=== PATIENT | female | born 1945 | race Caucasian/White ===

== ENCOUNTER → 2016-07-15 | Outpatient (CLI) | payer MEDICARE, OTHER ==
[~2016-07-15] MED LIST: ASCO500T75 PO; ASPI-999 PO; CALC-794 PO; CALC500T7 PO; CARB1DRO15 OP; FLAX1CAP6 PO; FLUT9.9S NS; GARL1TAB PO; IBUP200C75 PO; LACT1CAP57 PO; LEVO50TA6 PO; LOPE-134 PO; LORA10TA7 PO; LOSA1TAB69 PO; MECL-106 PO; MELA1TAB24 SL; MENT56CR TP; MULT-1042 PO; OMEP20TA7 PO; SIME125T PO; SODI126M NS; VITA400C58 PO
[2016-07-15 13:26] LABS: BASOPHILS % (AUTO) 0 % (0-10); EOSINOPHILS # (AUTO) 0.1 10^3/uL (0.0-0.3); EOSINOPHILS % (AUTO) 1 % (0-10); LYMPHOCYTES # (AUTO) 2.8 X 10^3 (1.0-4.0); LYMPHOCYTES % (AUTO) 37 % (12-44); MEAN CORPUSCULAR HEMOGLOBIN 30 PG (25-34); MEAN CORPUSCULAR HGB CONC 34 G/DL (32-36); MEAN CORPUSCULAR VOLUME 88 FL (80-99); MEAN PLATELET VOLUME 9.9 FL (7.4-10.4); MONOCYTES # (AUTO) 0.7 X 10^3 (0.0-1.0); MONOCYTES % (AUTO) 9 % (0-12); NEUTROPHILS # (AUTO) 4.1 X 10^3 (1.8-7.8); NEUTROPHILS % (AUTO) 53 % (42-75); PLATELET COUNT 343 10^3/uL (130-400); RED BLOOD COUNT 4.57 10^6/uL (4.35-5.85); WHITE BLOOD COUNT 7.7 10^3/uL (4.3-11.0)
[2016-07-15 13:58] LABS: ALANINE AMINOTRANSFERASE 19 U/L (0-55); ALBUMIN 4.2 G/DL (3.2-4.5); ANION GAP 8 MMOL/L (5-14); ASPARTATE AMINO TRANSFERASE 22 U/L (5-34); BILIRUBIN,TOTAL 0.4 MG/DL (0.1-1.0); BLOOD UREA NITROGEN 8 MG/DL (7-18); BUN/CREATININE RATIO 11; CALCIUM 9.2 MG/DL (8.5-10.1); CARBON DIOXIDE 28 MMOL/L (21-32); CHLORIDE 97 MMOL/L (98-107); CREATININE SERUM 0.72 MG/DL (0.60-1.30); GFR ESTIMATED > 60; GLUCOSE 99 MG/DL (70-105); POTASSIUM 4.4 MMOL/L (3.6-5.0); SODIUM 133 MMOL/L (135-145); TOTAL PROTEIN 7.5 G/DL (6.4-8.2)
== END ==
LOC: ONC 13:04
PROVIDERS: ATTEND Internal Medicine Hematology & Oncology
DX: C50.911 Malignant neoplasm of unspecified site of right female breast (principal); I10 Essential (primary) hypertension; E78.00 Pure hypercholesterolemia, unspecified; Z79.899 Other long term (current) drug therapy
CPT/HCPCS: 36415; 80053; 85025; 99213

== ENCOUNTER 2016-08-22 05:57 | Outpatient (CLI) | payer MEDICARE, OTHER ==
[~2016-08-22] VITALS: Ht 156.2 cm; Wt 83.9 kg
--- OUTSIDE RECORDS SUMMARY | 2016-08-22 06:00 | XMS REPORT | Continuity of Care Document ---
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 04/27/2014 NATHANIEL RODRIGUEZ N Ot 401.9 HYPERTENSION NOS 04/27/2014 NATHANIEL RODRIGUEZ Ot 457.1 OTHER LYMPHEDEMA 04/27/2014 NATHANIEL RODRIGUEZ Ot V15.3 HX OF IRRADIATION 04/27/2014 NATHANIEL RODRIGUEZ Ot V45.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 04/27/2014 NATHANIEL RODRIGUEZ Ot V58.66 LONG-TERM (CURRENT) USE OF ASPIRIN 04/27/2014 NATHANIEL RODRIGUEZ Ot V58.69 OTH MED,LT,CURRENT USE 04/27/2014 NATHANIEL RODRIGUEZ Ot V76.11 SCRN MAMMO-HIGH RISK PT, MALIGNANT NEOPL 04/27/2014 NATHANIEL RODRIGUEZ Ot V87.41 PERSONAL HISTORY OF ANTINEOPLASTIC CHEMO 09/01/2014 KLAUS NEUMANN ROPE TOW OPERATOR Ot 174.9 09/01/2014 KLAUS NEUMANN ROPE TOW OPERATOR Ot 196.3 09/01/2014 KLAUS NEUMANN ROPE TOW OPERATOR Ot 401.9 09/01/2014 KLAUS NEUMANN ROPE TOW OPERATOR Ot V15.3 09/01/2014 KALUS NEUMANN ROPE TOW OPERATOR Ot V45.71 09/01/2014 KLAUS NUEMANN ROPE TOW OPERATOR Ot V58.66 09/01/2014 KLAUS NEUMANN ROPE TOW OPERATOR Ot V58.69 09/01/2014 KLAUS NEUMANN ROPE TOW OPERATOR Ot V87.41 02/28/2015 KLAUS NEUMANN ROPE TOW OPERATOR Ot 174.9 02/28/2015 KLAUS NEUMANN ROPE TOW OPERATOR Ot V76.11 07/21/2015 JENNIFER, BOBAN N Ot 174.9 07/21/2015 JENNIFER, BOBAN N Ot 196.3 07/21/2015 JENNIFER, BOBAN N Ot 401.9 07/21/2015 JENNIFER, BOBAN N Ot 457.1 07/21/2015 JENNIFER, BOBAN N Ot V15.3 07/21/2015 JENNIFER, BOBAN N Ot V45.71 07/21/2015 JENNIFER, BOBAN N Ot V58.66 07/21/2015 JENNIFER, BOBAN N Ot V58.69 07/21/2015 JENNIFER, BOBAN N Ot V76.11 07/21/2015 JENNIFER, BOBAN N Ot V87.41 07/21/2015 JENNIFER, BOBAN N Ot 174.9 07/21/2015 JENNIFER, BOBAN N Ot 196.3 07/21/2015 JENNIFER, BOBAN N Ot 401.9 07/21/2015 JENNIFER, BOBAN N Ot 457.1 07/21/2015 JENNIFER, BOBAN N Ot V15.3 07/21/2015 JENNIFER, BOBAN N Ot V45.71 07/21/2015 JENNIFER, BOBAN N Ot V58.66 07/21/2015 JENNIFER, BOBAN N Ot V58.69 07/21/2015 JENNIFER, BOBAN N Ot V76.11 07/21/2015 JENNIFER, BOBAN N Ot V87.41 08/24/2015 JENNIFER, BOBAN N Ot C50.911 08/24/2015 JENNIFER, BOBAN N Ot E78.0 08/24/2015 JENNIFER, BOBAN N Ot I10 08/24/2015 JENNIFER, BOBAN N Ot Z79.899 08/24/2015 DENAE FREEMAN, KHRIS Peter Ot E03.9 08/24/2015 KHRIS PHILIPPE MD Ot I10 01/08/2016 Ot 174.9 MALIGN NEOPL BREAST NOS 01/08/2016 Ot 733.90 BONE CARTILAGE DIS NOS 05/22/2016 Ot 174.9 MALIGN NEOPL BREAST NOS 05/22/2016 Ot 733.90 BONE CARTILAGE DIS NOS 05/22/2016 Ot 174.9 MALIGN NEOPL BREAST NOS 05/22/2016 Ot 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 05/22/2016 Ot 702.19 OTHER SEBORRHEIC KERATOSIS 05/22/2016 Ot 733.90 BONE CARTILAGE DIS NOS 05/22/2016 Ot V15.3 HX OF IRRADIATION 05/22/2016 Ot V45.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 05/22/2016 Ot V58.69 OTH MED,LT,CURRENT USE 05/22/2016 Ot V87.41 PERSONAL HISTORY OF ANTINEOPLASTIC CHEMO 05/22/2016 Ot 174.9 MALIGN NEOPL BREAST NOS 05/22/2016 Ot 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 05/22/2016 Ot 702.19 OTHER SEBORRHEIC KERATOSIS 05/22/2016 Ot 733.90 BONE CARTILAGE DIS NOS 05/22/2016 Ot V15.3 HX OF IRRADIATION 05/22/2016 Ot V45.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 05/22/2016 Ot V58.69 OTH MED,LT,CURRENT USE 05/22/2016 Ot V87.41 PERSONAL HISTORY OF ANTINEOPLASTIC CHEMO 05/22/2016 Ot 174.9 MALIGN NEOPL BREAST NOS 05/22/2016 Ot V76.11 SCRN MAMMO-HIGH RISK PT, MALIGNANT NEOPL 05/22/2016 Ot 174.9 MALIGN NEOPL BREAST NOS 05/22/2016 Ot 174.9 MALIGN NEOPL BREAST NOS 05/22/2016 Ot 457.1 OTHER LYMPHEDEMA 05/22/2016 Ot V15.3 HX OF IRRADIATION 05/22/2016 Ot V45.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 05/22/2016 Ot V58.66 LONG-TERM (CURRENT) USE OF ASPIRIN 05/22/2016 Ot V58.69 OTH MED,LT,CURRENT USE 05/22/2016 Ot V87.41 PERSONAL HISTORY OF ANTINEOPLASTIC CHEMO 05/22/2016 Ot 174.9 MALIGN NEOPL BREAST NOS 05/22/2016 Ot 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 05/22/2016 Ot 401.9 HYPERTENSION NOS 05/22/2016 Ot 457.1 OTHER LYMPHEDEMA 05/22/2016 Ot V15.3 HX OF IRRADIATION 05/22/2016 Ot V45.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 05/22/2016 Ot V58.66 LONG-TERM (CURRENT) USE OF ASPIRIN 05/22/2016 Ot V58.69 OTH MED,LT,CURRENT USE 05/22/2016 Ot V87.41 PERSONAL HISTORY OF ANTINEOPLASTIC CHEMO 05/22/2016 KLAUS NEUMANN ROPE TOW OPERATOR Ot 174.9 MALIGN NEOPL BREAST NOS 05/22/2016 KLAUS NEUMANN ROPE TOW OPERATOR Ot 733.90 BONE CARTILAGE DIS NOS 05/22/2016 KLAUS NEUMANN ROPE TOW OPERATOR Ot V49.81 ASYMPT POSTMENOPAUSAL STATUS (AGE- RELATE 05/22/2016 KLAUS NEUMANN ROPE TOW OPERATOR Ot V76.11 SCRN MAMMO-HIGH RISK PT, MALIGNANT NEOPL 05/22/2016 NATHANIEL RODRIGUEZ Ot 174.9 MALIGN NEOPL BREAST NOS 05/22/2016 NATHANIEL RODRIGUEZ Ot 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 05/22/2016 NATHANIEL RODRIGUEZ N Ot 401.9 HYPERTENSION NOS 05/22/2016 NATHANIEL RODRIGUEZ Ot 457.1 OTHER LYMPHEDEMA 05/22/2016 NATHANIEL RODRIGUEZ Ot V15.3 HX OF IRRADIATION 05/22/2016 NATHANIEL RODRIGUEZ Ot V45.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 05/22/2016 NATHANIEL RODRIGUEZ Ot V58.66 LONG-TERM (CURRENT) USE OF ASPIRIN 05/22/2016 NATHANIEL RODRIGUEZ Ot V58.69 OTH MED,LT,CURRENT USE 05/22/2016 NATHANIEL RODRIGUEZ Lesley Ot V87.41 PERSONAL HISTORY OF ANTINEOPLASTIC CHEMO 05/22/2016 ANSELMO JUNE LICENSED PROSTHETIST/ORTHOTIST Ot 785.9 CARDIOVAS SYS SYMP NEC 05/22/2016 ANSELMO JUNE LICENSED PROSTHETIST/ORTHOTIST Ot V12.54 PERSONAL HX OF TIA, CEREBRAL INFARCTION 05/22/2016 KLAUS NEUMANN ROPE TOW OPERATOR Ot 174.9 MALIGN NEOPL BREAST NOS 05/22/2016 KLAUS NEUMANN ROPE TOW OPERATOR Ot 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 05/22/2016 KLAUS NEUMANN ROPE TOW OPERATOR Ot 401.9 HYPERTENSION NOS 05/22/2016 KLAUS NEUMANN ROPE TOW OPERATOR Ot 457.1 OTHER LYMPHEDEMA 05/22/2016 KLAUS NEUMANN ROPE TOW OPERATOR Ot V15.3 HX OF IRRADIATION 05/22/2016 KLAUS NEUMANN ROPE TOW OPERATOR Ot V45.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 05/22/2016 KLAUS NEUMANN ROPE TOW OPERATOR Ot V58.66 LONG-TERM (CURRENT) USE OF ASPIRIN 05/22/2016 KLAUS NEUMANN ROPE TOW OPERATOR Ot V58.69 OTH MED,LT,CURRENT USE 05/22/2016 KLAUS NEUMANN ROPE TOW OPERATOR Ot V87.41 PERSONAL HISTORY OF ANTINEOPLASTIC CHEMO 05/22/2016 KLAUS NEUMANN ROPE TOW OPERATOR Ot 174.9 MALIGN NEOPL BREAST NOS 05/22/2016 KLAUS NEUMANN ROPE TOW OPERATOR Ot 733.90 BONE CARTILAGE DIS NOS 05/22/2016 KLAUS NEUMANNP Ot V76.11 SCRN MAMMO-HIGH RISK PT, MALIGNANT NEOPL 05/22/2016 DENAE FREEMAN, KHRIS A Ot 244.9 HYPOTHYROIDISM NOS 05/22/2016 NATHANIEL RODRIGUEZ Ot C50.911 MALIGNANT NEOPLASM OF UNSP SITE OF RIGHT 05/22/2016 NATHANIEL RODRIGUEZ Ot E78.0 PURE HYPERCHOLESTEROLEMIA 05/22/2016 NATHANIEL RODRIGUEZ Ot I10 ESSENTIAL (PRIMARY) HYPERTENSION 05/22/2016 NATHANIEL RODRIGUEZ Ot Z79.899 OTHER SEED AND FERTILIZER SPECIALIST (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 05/22/2016 KLAUS NEUMANN ROPE TOW OPERATOR Ot 174.9 MALIGN NEOPL BREAST NOS 05/22/2016 KLAUS NEUMANN ROPE TOW OPERATOR Ot 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 05/22/2016 KLAUS NEUMANNP Ot 401.9 HYPERTENSION NOS 05/22/2016 KLAUS NEUMANN ROPE TOW OPERATOR Ot V15.3 HX OF IRRADIATION 05/22/2016 KLAUS NEUMANN ROPE TOW OPERATOR Ot V45.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 05/22/2016 KLAUS NEUMANN ROPE TOW OPERATOR Ot V58.66 LONG-TERM (CURRENT) USE OF ASPIRIN 05/22/2016 KLAUS NEUMANNP Ot V58.69 OTH MED,LT,CURRENT USE 05/22/2016 KLAUS NEUMANN ROPE TOW OPERATOR Ot V87.41 PERSONAL HISTORY OF ANTINEOPLASTIC CHEMO 05/22/2016 KLAUS NEUMANN ROPE TOW OPERATOR Ot 174.9 MALIGN NEOPL BREAST NOS 05/22/2016 KLAUS NEUMANN ROPE TOW OPERATOR Ot V76.11 SCRN MAMMO-HIGH RISK PT, MALIGNANT NEOPL 05/22/2016 KHRIS PHILIPPE MD Ot E03.9 HYPOTHYROIDISM, UNSPECIFIED 05/22/2016 KHRIS PHILIPPE MD Ot I10 ESSENTIAL (PRIMARY) HYPERTENSION 05/23/2016 KHRIS PHILIPPE MD Ot Z08 ENCNTR FOR FOLLOW-UP EXAM AFTER TRTMT FO 05/23/2016 KHRIS PHILIPPE MD Ot Z85.3 PERSONAL HISTORY OF MALIGNANT NEOPLASM O 06/13/2016 KHRIS PHILIPPE MD Ot Z08 ENCNTR FOR FOLLOW-UP EXAM AFTER TRTMT FO 06/13/2016 KHRIS PHILIPPE MD Ot Z85.3 PERSONAL HISTORY OF MALIGNANT NEOPLASM O 07/15/2016 Ot 174.9 MALIGN NEOPL BREAST NOS 07/15/2016 Ot 733.90 BONE CARTILAGE DIS NOS 07/15/2016 Ot 174.9 MALIGN NEOPL BREAST NOS 07/15/2016 Ot 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 07/15/2016 Ot 702.19 OTHER SEBORRHEIC KERATOSIS 07/15/2016 Ot 733.90 BONE CARTILAGE DIS NOS 07/15/2016 Ot V15.3 HX OF IRRADIATION 07/15/2016 Ot V45.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 07/15/2016 Ot V58.69 OTH MED,LT,CURRENT USE 07/15/2016 Ot V87.41 PERSONAL HISTORY OF ANTINEOPLASTIC CHEMO 07/15/2016 Ot 174.9 MALIGN NEOPL BREAST NOS 07/15/2016 Ot 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 07/15/2016 Ot 702.19 OTHER SEBORRHEIC KERATOSIS 07/15/2016 Ot 733.90 BONE CARTILAGE DIS NOS 07/15/2016 Ot V15.3 HX OF IRRADIATION 07/15/2016 Ot V45.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 07/15/2016 Ot V58.69 OTH MED,LT,CURRENT USE 07/15/2016 Ot V87.41 PERSONAL HISTORY OF ANTINEOPLASTIC CHEMO 07/15/2016 Ot 174.9 MALIGN NEOPL BREAST NOS 07/15/2016 Ot V76.11 SCRN MAMMO-HIGH RISK PT, MALIGNANT NEOPL 07/15/2016 Ot 174.9 MALIGN NEOPL BREAST NOS 07/15/2016 Ot 174.9 MALIGN NEOPL BREAST NOS 07/15/2016 Ot 457.1 OTHER LYMPHEDEMA 07/15/2016 Ot V15.3 HX OF IRRADIATION 07/15/2016 Ot V45.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 07/15/2016 Ot V58.66 LONG-TERM (CURRENT) USE OF ASPIRIN 07/15/2016 Ot V58.69 OTH MED,LT,CURRENT USE 07/15/2016 Ot V87.41 PERSONAL HISTORY OF ANTINEOPLASTIC CHEMO 07/15/2016 Ot 174.9 MALIGN NEOPL BREAST NOS 07/15/2016 Ot 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 07/15/2016 Ot 401.9 HYPERTENSION NOS 07/15/2016 Ot 457.1 OTHER LYMPHEDEMA 07/15/2016 Ot V15.3 HX OF IRRADIATION 07/15/2016 Ot V45.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 07/15/2016 Ot V58.66 LONG-TERM (CURRENT) USE OF ASPIRIN 07/15/2016 Ot V58.69 OTH MED,LT,CURRENT USE 07/15/2016 Ot V87.41 PERSONAL HISTORY OF ANTINEOPLASTIC CHEMO 07/15/2016 KLAUS NEUMANN ROPE TOW OPERATOR Ot 174.9 MALIGN NEOPL BREAST NOS 07/15/2016 KLAUS NEUMANN ROPE TOW OPERATOR Ot 733.90 BONE CARTILAGE DIS NOS 07/15/2016 KLAUS NEUMANN ROPE TOW OPERATOR Ot V49.81 ASYMPT POSTMENOPAUSAL STATUS (AGE- RELATE 07/15/2016 KLAUS NEUMANN ROPE TOW OPERATOR Ot V76.11 SCRN MAMMO-HIGH RISK PT, MALIGNANT NEOPL 07/15/2016 NATHANIEL RODRIGUEZ Ot 174.9 MALIGN NEOPL BREAST NOS 07/15/2016 NATHANIEL RODRIGUEZ Ot 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 07/15/2016 NATHANIEL RODRIGUEZ Ot 401.9 HYPERTENSION NOS 07/15/2016 NATHANIEL RODRIGUEZ Ot 457.1 OTHER LYMPHEDEMA 07/15/2016 NATHANIEL RODRIGUEZ Ot V15.3 HX OF IRRADIATION 07/15/2016 NATHANIEL RODRIGUEZ Ot V45.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 07/15/2016 NATHANIEL RODRIGUEZ Ot V58.66 LONG-TERM (CURRENT) USE OF ASPIRIN 07/15/2016 NATHANIEL RODRIGUEZ Ot V58.69 OTH MED,LT,CURRENT USE 07/15/2016 JENNIFER, NATHANIEL Sutton Ot V87.41 PERSONAL HISTORY OF ANTINEOPLASTIC CHEMO 07/15/2016 ANSELMO JUNE LICENSED PROSTHETIST/ORTHOTIST Ot 785.9 CARDIOVAS SYS SYMP NEC 07/15/2016 ANSELMO JUNE LICENSED PROSTHETIST/ORTHOTIST Ot V12.54 PERSONAL HX OF TIA, CEREBRAL INFARCTION 07/15/2016 KLAUS NEUMANN ROPE TOW OPERATOR Ot 174.9 MALIGN NEOPL BREAST NOS 07/15/2016 KLAUS NEUMANN ROPE TOW OPERATOR Ot 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 07/15/2016 KLAUS NEUMANN ROPE TOW OPERATOR Ot 401.9 HYPERTENSION NOS 07/15/2016 KLAUS NEUMANN ROPE TOW OPERATOR Ot 457.1 OTHER LYMPHEDEMA 07/15/2016 KLAUS NEUMANN ROPE TOW OPERATOR Ot V15.3 HX OF IRRADIATION 07/15/2016 KLAUS NEUMANN ROPE TOW OPERATOR Ot V45.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 07/15/2016 KLAUS NEUMANN ROPE TOW OPERATOR Ot V58.66 LONG-TERM (CURRENT) USE OF ASPIRIN 07/15/2016 KLAUS NEUMANN ROPE TOW OPERATOR Ot V58.69 OTH MED,LT,CURRENT USE 07/15/2016 KLAUS NEUMANN ROPE TOW OPERATOR Ot V87.41 PERSONAL HISTORY OF ANTINEOPLASTIC CHEMO 07/15/2016 KLAUS NEUMANN ROPE TOW OPERATOR Ot 174.9 MALIGN NEOPL BREAST NOS 07/15/2016 KLAUS NEUMANN ROPE TOW OPERATOR Ot 733.90 BONE CARTILAGE DIS NOS 07/15/2016 KLAUS NEUMANN S ROPE TOW OPERATOR Ot V76.11 SCRN MAMMO-HIGH RISK PT, MALIGNANT NEOPL 07/15/2016 DENAE FREEMAN, KHRIS Peter Ot 244.9 HYPOTHYROIDISM NOS 07/15/2016 NATHANIEL RODRIGUEZ Ot C50.911 MALIGNANT NEOPLASM OF UNSP SITE OF RIGHT 07/15/2016 NATHANIEL RODRIGUEZ Ot E78.0 PURE HYPERCHOLESTEROLEMIA 07/15/2016 NATHANIEL RODRIGUEZ Ot I10 ESSENTIAL (PRIMARY) HYPERTENSION 07/15/2016 NATHANIEL RODRIGUEZ Ot Z79.899 OTHER [facility] (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 07/15/2016 KLAUS NEUMANN ROPE TOW OPERATOR Ot 174.9 MALIGN NEOPL BREAST NOS 07/15/2016 KLAUS NEUMANN ROPE TOW OPERATOR Ot 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 07/15/2016 KLAUS NEUMANN ROPE TOW OPERATOR Ot 401.9 HYPERTENSION NOS 07/15/2016 KLAUS NEUMANN ROPE TOW OPERATOR Ot V15.3 HX OF IRRADIATION 07/15/2016 KLAUS NEUMANN ROPE TOW OPERATOR Ot V45.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 07/15/2016 KLAUS NEUMANN ROPE TOW OPERATOR Ot V58.66 LONG-TERM (CURRENT) USE OF ASPIRIN 07/15/2016 KLAUS NEUMANN ROPE TOW OPERATOR Ot V58.69 OTH MED,LT,CURRENT USE 07/15/2016 KLAUS NEUMANN ROPE TOW OPERATOR Ot V87.41 PERSONAL HISTORY OF ANTINEOPLASTIC CHEMO 07/15/2016 KLAUS NEUMANN ROPE TOW OPERATOR Ot 174.9 MALIGN NEOPL BREAST NOS 07/15/2016 KLAUS NEUMANN ROPE TOW OPERATOR Ot V76.11 SCRN MAMMO-HIGH RISK PT, MALIGNANT NEOPL 07/15/2016 KHRIS PHILIPPE MD Ot E03.9 HYPOTHYROIDISM, UNSPECIFIED 07/15/2016 KHRIS PHILIPPE MD Ot I10 ESSENTIAL (PRIMARY) HYPERTENSION 07/15/2016 KHRIS PHILIPPE MD, Ot Z08 ENCNTR FOR FOLLOW-UP EXAM AFTER TRTMT FO 07/15/2016 KHRIS PHILIPPE MD Ot Z85.3 PERSONAL HISTORY OF MALIGNANT NEOPLASM O 07/16/2016 NATHANIEL RODRIGUEZ Ot C50.911 MALIGNANT NEOPLASM OF UNSP SITE OF RIGHT 07/16/2016 NATHANIEL RODRIGUEZ Ot E78.00 PURE HYPERCHOLESTEROLEMIA, UNSPECIFIED 07/16/2016 NATHANIEL RODRIGUEZ Ot I10 ESSENTIAL (PRIMARY) HYPERTENSION 07/16/2016 NATHANIEL RODRIGUEZ Ot Z79.899 OTHER SEED AND FERTILIZER SPECIALIST (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 07/21/2016 NATHANIEL RODRIGUEZ Ot C50.911 MALIGNANT NEOPLASM OF UNSP SITE OF RIGHT 07/21/2016 NATHANIEL RODRIGUEZ Ot E78.00 PURE HYPERCHOLESTEROLEMIA, UNSPECIFIED 07/21/2016 NATHANIEL RODRIGUEZ Ot I10 ESSENTIAL (PRIMARY) HYPERTENSION 07/21/2016 NATHANIEL RODRIGUEZ Ot Z79.899 OTHER SEED AND FERTILIZER SPECIALIST (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 08/01/2016 NATHANIEL RODRIGUEZ Ot C50.911 MALIGNANT NEOPLASM OF UNSP SITE OF RIGHT 08/01/2016 NATHANIEL RODRIGUEZ Ot E78.00 PURE HYPERCHOLESTEROLEMIA, UNSPECIFIED 08/01/2016 NATHANIEL RODRIGUEZ Ot I10 ESSENTIAL (PRIMARY) HYPERTENSION 08/01/2016 NATHANIEL RODRIGUEZ Ot Z79.899 OTHER SEED AND FERTILIZER SPECIALIST (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 Procedures Results Encounters ACCT No. Visit Date/Time Discharge Status Pt. Type Provider Facility Loc./Unit Complaint [id number] 02/07/2015 14:26:00 2014 23:59:59 CLS Outpatient KLAUS NEUMANN ROPE TOW OPERATOR [facility] RAD SCREENING [id number] 08/01/2014 13:47:00 2014 23:59:59 CLS Outpatient KLAUS NEUMANN ROPE TOW OPERATOR [facility] ONC [id number] 01/31/2014 13:27:00 2013 00:01:00 DIS Outpatient NATHANIEL RODRIGUEZ [facility] ONC [id number] 01/27/2014 10:35:00 2013 23:59:59 CLS Outpatient KLAUS NEUMANN ROPE TOW OPERATOR [facility] RAD BREAST CA,OSTEOPENIA [id number] 01/27/2014 10:34:00 2013 23:59:59 CLS Outpatient KHRIS PHILIPPE MD [facility] LAB [id number] 08/12/2013 14:05:00 2013 23:59:59 CLS Outpatient KLAUS NEUMANN ROPE TOW OPERATOR [facility] ONC [id number] 02/26/2013 11:34:00 2012 23:59:59 CLS Outpatient ANSELMO JUNE APRN [facility] RAD RT VERTEBRAL ARTERY RETROGRADE FLOW, TIA SX [id number] 02/11/2013 13:31:00 2012 23:59:59 CLS Outpatient NATHANIEL RODRIGUEZ [facility] ONC [id number] 01/22/2013 09:55:00 2012 23:59:59 CLS Outpatient KLAUS NEUMANN ROPE TOW OPERATOR [facility] RAD SCREENING [id number] 08/22/2016 05:57:00 ACT Outpatient JARVIS FREEMAN, SIMONE Parks [facility] PREOP SCREENING;REFLUX [id number] 07/15/2016 13:04:00 ACT Outpatient NATHANIEL RODRIGUEZ [facility] ONC [id number] 05/22/2016 12:59:00 ACT Outpatient KHRIS PHILIPPE MD [facility] RAD HX OF BREAST CA [id number] 07/31/2015 13:19:00 ACT Outpatient KHRIS PHILIPPE MD [facility] LAB [id number] 07/31/2015 13:16:00 ACT Outpatient NATHANIEL RODRIGUEZ [facility] ONC [id number] 07/21/2012 11:00:00 Document Registration [id number] 01/20/2012 12:51:00 Document Registration [id number] 09/12/2011 15:02:00 Document Registration [id number] 09/12/2011 14:23:00 Document Registration [id number] 07/31/2011 12:54:00 Document Registration [id number] 03/07/2011 13:37:00 Document Registration [id number] 03/07/2011 12:39:00 Document Registration
[2016-08-26] MEDS ORDERED: CALC500T7 PO (09:23)
== END 2016-08-22 13:26 ==
LOC: PREOP 05:57
PROVIDERS: ATTEND Surgery
DX: Z01.818 Encounter for other preprocedural examination (principal); Z12.11 Encounter for screening for malignant neoplasm of colon; K21.9 Gastro-esophageal reflux disease without esophagitis; K29.70 Gastritis, unspecified, without bleeding

== ENCOUNTER 2016-08-26 08:03 | Day surgery (SDC) | payer MEDICARE, OTHER ==
[~2016-08-26] VITALS: Ht 156.2 cm; Wt 83.9 kg
--- OUTSIDE RECORDS SUMMARY | 2016-08-26 08:10 | XMS REPORT | Continuity of Care Document ---
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 04/27/2014 NATHANIEL RODRIGUEZ Ot 401.9 HYPERTENSION NOS 04/27/2014 NATHANIEL RODRIGUEZ [...] HISTORY OF ANTINEOPLASTIC CHEMO 09/01/2014 KLAUS NEUMANN DRAFTER GEOPHYSICAL Ot 174.9 09/01/2014 KLAUS NEUMANN DRAFTER GEOPHYSICAL Ot 196.3 09/01/2014 KLAUS NEUMANN DRAFTER GEOPHYSICAL Ot 401.9 09/01/2014 KLAUS NEUMANN DRAFTER GEOPHYSICAL Ot V15.3 09/01/2014 KLAUS NEUMANN DRAFTER GEOPHYSICAL Ot V45.71 09/01/2014 KLAUS NEUMANN DRAFTER GEOPHYSICAL Ot V58.66 09/01/2014 KLAUS NEUMANN DRAFTER GEOPHYSICAL Ot V58.69 09/01/2014 KLAUS NEUMANN DRAFTER GEOPHYSICAL Ot V87.41 02/28/2015 KLAUS NEUMANN DRAFTER GEOPHYSICAL Ot 174.9 02/28/2015 KLAUS NEUMANN DRAFTER GEOPHYSICAL Ot V76.11 07/21/2015 JENNIFER, BOBAN N Ot [...] DENAE FREEMAN, KHRIS Peter Ot E03.9 08/24/2015 DENAE FREEMAN, KHRIS Peter Ot I10 01/08/2016 Ot 174.9 MALIGN NEOPL [...] HISTORY OF ANTINEOPLASTIC CHEMO 05/22/2016 KLAUS NEUMANN DRAFTER GEOPHYSICAL Ot 174.9 MALIGN NEOPL BREAST NOS 05/22/2016 KLAUS NEUMANN DRAFTER GEOPHYSICAL Ot 733.90 BONE CARTILAGE DIS NOS 05/22/2016 KLAUS NEUMANN DRAFTER GEOPHYSICAL Ot V49.81 ASYMPT POSTMENOPAUSAL STATUS (AGE- RELATE 05/22/2016 KLAUS NEUMANN DRAFTER GEOPHYSICAL Ot V76.11 SCRN MAMMO-HIGH RISK PT, MALIGNANT NEOPL 05/22/2016 NATHANIEL RODRIGUEZ Ot 174.9 MALIGN NEOPL BREAST NOS 05/22/2016 NATHANIEL RODRIGUEZ N Ot 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 05/22/2016 NATHANIEL RODRIGUEZ Ot 401.9 HYPERTENSION NOS 05/22/2016 NATHANIEL RODRIGUEZ Ot 457.1 OTHER LYMPHEDEMA 05/22/2016 NATHANIEL RODRIGUEZ Ot V15.3 HX OF IRRADIATION 05/22/2016 JENNIFERNATHANIEL Ot V45.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 05/22/2016 JENNIFERNATHANIEL Ot V58.66 LONG-TERM (CURRENT) USE OF ASPIRIN 05/22/2016 JENNIFER, NATHANIEL Sutton Ot V58.69 OTH MED,LT,CURRENT USE 05/22/2016 KIARA RODRIGUEZOLGA Sutton Ot V87.41 PERSONAL HISTORY OF ANTINEOPLASTIC CHEMO 05/22/2016 ANSELMO JUNE MATERIAL HANDLER Ot 785.9 CARDIOVAS SYS SYMP NEC 05/22/2016 ANSELMO JUNE MATERIAL HANDLER Ot V12.54 PERSONAL HX OF TIA, CEREBRAL INFARCTION 05/22/2016 KLAUS NEUMANN DRAFTER GEOPHYSICAL Ot 174.9 MALIGN NEOPL BREAST NOS 05/22/2016 KLAUS NEUMANN DRAFTER GEOPHYSICAL Ot 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 05/22/2016 KLAUS NEUMANN DRAFTER GEOPHYSICAL Ot 401.9 HYPERTENSION NOS 05/22/2016 KLAUS NEUMANN DRAFTER GEOPHYSICAL Ot 457.1 OTHER LYMPHEDEMA 05/22/2016 KLAUS NEUMANN DRAFTER GEOPHYSICAL Ot V15.3 HX OF IRRADIATION 05/22/2016 NELKLAUS DRAFTER GEOPHYSICAL Ot V45.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 05/22/2016 VICKY NEUMANNSHERWIN Lamar DRAFTER GEOPHYSICAL Ot V58.66 LONG-TERM (CURRENT) USE OF ASPIRIN 05/22/2016 NEL KLAUS Newton DRAFTER GEOPHYSICAL Ot V58.69 OTH MED,LT,CURRENT USE 05/22/2016 NEL KLAUS Newotn DRAFTER GEOPHYSICAL Ot V87.41 PERSONAL HISTORY OF ANTINEOPLASTIC CHEMO 05/22/2016 VICKY NEUMANNSHERWIN Newton DRAFTER GEOPHYSICAL Ot 174.9 MALIGN NEOPL BREAST NOS 05/22/2016 NEL KLAUS Newton DRAFTER GEOPHYSICAL Ot 733.90 BONE CARTILAGE DIS NOS 05/22/2016 VICKY NEUMANNSHERWIN Lamar DRAFTER GEOPHYSICAL Ot V76.11 SCRN MAMMO-HIGH RISK PT, MALIGNANT NEOPL 05/22/2016 DENAE FREEMAN, KHRIS A Ot 244.9 HYPOTHYROIDISM NOS 05/22/2016 NATHANIEL RODRIGUEZ Ot C50.911 MALIGNANT NEOPLASM OF UNSP SITE OF RIGHT 05/22/2016 NATHANIEL RODRIGUEZ Ot E78.0 PURE HYPERCHOLESTEROLEMIA 05/22/2016 NATHANIEL RODRIGUEZ Ot I10 ESSENTIAL (PRIMARY) HYPERTENSION 05/22/2016 NATHANIEL RODRIGUEZ Ot 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 05/22/2016 KLAUS NEUMANN DRAFTER GEOPHYSICAL Ot 174.9 MALIGN NEOPL BREAST NOS 05/22/2016 VICKY NEUMANNSHERWIN Lamar DRAFTER GEOPHYSICAL Ot 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 05/22/2016 KLAUS NEUMANN DRAFTER GEOPHYSICAL Ot 401.9 HYPERTENSION NOS 05/22/2016 VICKY NEUMANNSHERWIN Newton DRAFTER GEOPHYSICAL Ot V15.3 HX OF IRRADIATION 05/22/2016 NEL KLAUS Newton DRAFTER GEOPHYSICAL Ot V45.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 05/22/2016 KLAUS NEUMANN Lamar DRAFTER GEOPHYSICAL Ot V58.66 LONG-TERM (CURRENT) USE OF ASPIRIN 05/22/2016 NEL KLAUS Newton DRAFTER GEOPHYSICAL Ot V58.69 OTH MED,LT,CURRENT USE 05/22/2016 NEL KLAUS Newton DRAFTER GEOPHYSICAL Ot V87.41 PERSONAL HISTORY OF ANTINEOPLASTIC CHEMO 05/22/2016 NEUMANN, HILAH S DRAFTER GEOPHYSICAL Ot 174.9 MALIGN NEOPL BREAST NOS 05/22/2016 KLAUS NEUMANN DRAFTER GEOPHYSICAL Ot V76.11 SCRN MAMMO-HIGH RISK PT, MALIGNANT [...] EXAM AFTER TRTMT FO 06/13/2016 KHRIS PHILIPPE MD, Ot Z85.3 PERSONAL HISTORY OF MALIGNANT NEOPLASM [...] HISTORY OF ANTINEOPLASTIC CHEMO 07/15/2016 KLAUS NEUMANN DRAFTER GEOPHYSICAL Ot 174.9 MALIGN NEOPL BREAST NOS 07/15/2016 KLAUS NEUMANN DRAFTER GEOPHYSICAL Ot 733.90 BONE CARTILAGE DIS NOS 07/15/2016 KLAUS NEUMANN DRAFTER GEOPHYSICAL Ot V49.81 ASYMPT POSTMENOPAUSAL STATUS (AGE- RELATE 07/15/2016 KLAUS NEUMANN DRAFTER GEOPHYSICAL Ot V76.11 SCRN MAMMO-HIGH RISK PT, MALIGNANT [...] RODRIGUEZ Ot V58.69 OTH MED,LT,CURRENT USE 07/15/2016 NATHANIEL RODRIGUEZ Ot V87.41 PERSONAL HISTORY OF ANTINEOPLASTIC CHEMO 07/15/2016 ANSELMO JUNE MATERIAL HANDLER Ot 785.9 CARDIOVAS SYS SYMP NEC 07/15/2016 ANSELMO JUNE MATERIAL HANDLER Ot V12.54 PERSONAL HX OF TIA, CEREBRAL INFARCTION 07/15/2016 KLAUS NEUMANN DRAFTER GEOPHYSICAL Ot 174.9 MALIGN NEOPL BREAST NOS 07/15/2016 KLAUS NEUMANN DRAFTER GEOPHYSICAL Ot 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 07/15/2016 KLAUS NEUMANN DRAFTER GEOPHYSICAL Ot 401.9 HYPERTENSION NOS 07/15/2016 KLAUS NEUMANN DRAFTER GEOPHYSICAL Ot 457.1 OTHER LYMPHEDEMA 07/15/2016 KLAUS NEUMANN DRAFTER GEOPHYSICAL Ot V15.3 HX OF IRRADIATION 07/15/2016 KLAUS NEUMANN DRAFTER GEOPHYSICAL Ot V45.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 07/15/2016 KLAUS NEUMANN DRAFTER GEOPHYSICAL Ot V58.66 LONG-TERM (CURRENT) USE OF ASPIRIN 07/15/2016 KLAUS NEUMANN DRAFTER GEOPHYSICAL Ot V58.69 OTH MED,LT,CURRENT USE 07/15/2016 KLAUS NEUMANN DRAFTER GEOPHYSICAL Ot V87.41 PERSONAL HISTORY OF ANTINEOPLASTIC CHEMO 07/15/2016 KLAUS NEUMANN DRAFTER GEOPHYSICAL Ot 174.9 MALIGN NEOPL BREAST NOS 07/15/2016 KLAUS NEUMANN DRAFTER GEOPHYSICAL Ot 733.90 BONE CARTILAGE DIS NOS 07/15/2016 KLAUS NEUMANN DRAFTER GEOPHYSICAL Ot V76.11 SCRN MAMMO-HIGH RISK PT, MALIGNANT NEOPL 07/15/2016 DENAE FREEMAN, KHRIS A Ot 244.9 HYPOTHYROIDISM NOS 07/15/2016 NATHANIEL RODRIGUEZ Ot C50.911 MALIGNANT NEOPLASM OF UNSP SITE OF RIGHT 07/15/2016 NATHANIEL RODRIGUEZ Ot E78.0 PURE HYPERCHOLESTEROLEMIA 07/15/2016 NATHANIEL RODRIGUEZ Ot I10 ESSENTIAL (PRIMARY) HYPERTENSION 07/15/2016 NATHANIEL RODRIGUEZ Ot 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 07/15/2016 KLAUS NEUMANN DRAFTER GEOPHYSICAL Ot 174.9 MALIGN NEOPL BREAST NOS 07/15/2016 KLAUS NEUMANN DRAFTER GEOPHYSICAL Ot 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 07/15/2016 KLAUS NEUMANN DRAFTER GEOPHYSICAL Ot 401.9 HYPERTENSION NOS 07/15/2016 KLAUS NEUMANN DRAFTER GEOPHYSICAL Ot V15.3 HX OF IRRADIATION 07/15/2016 KLAUS NEUMANN DRAFTER GEOPHYSICAL Ot V45.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 07/15/2016 KLAUS NEUMANN DRAFTER GEOPHYSICAL Ot V58.66 LONG-TERM (CURRENT) USE OF ASPIRIN 07/15/2016 KLAUS NEUMANN DRAFTER GEOPHYSICAL Ot V58.69 OTH MED,LT,CURRENT USE 07/15/2016 KLAUS NEUMANN DRAFTER GEOPHYSICAL Ot V87.41 PERSONAL HISTORY OF ANTINEOPLASTIC CHEMO 07/15/2016 KLAUS NEUMANN DRAFTER GEOPHYSICAL Ot 174.9 MALIGN NEOPL BREAST NOS 07/15/2016 KLAUS NEUMANN DRAFTER GEOPHYSICAL Ot V76.11 SCRN MAMMO-HIGH RISK PT, MALIGNANT NEOPL 07/15/2016 KHRIS PHILIPPE MD Ot E03.9 HYPOTHYROIDISM, UNSPECIFIED 07/15/2016 KHRIS PHILIPPE MD Ot I10 ESSENTIAL (PRIMARY) HYPERTENSION 07/15/2016 KHRIS PHILIPPE MD Ot Z08 ENCNTR FOR FOLLOW-UP EXAM AFTER TRTMT FO 07/15/2016 KHRIS PHILIPPE MD Ot Z85.3 PERSONAL HISTORY OF MALIGNANT NEOPLASM O 07/16/2016 NATHANIEL RODRIGUEZ Ot C50.911 MALIGNANT NEOPLASM OF UNSP SITE OF RIGHT 07/16/2016 NATHANIEL RODRIGUEZ Ot E78.00 PURE HYPERCHOLESTEROLEMIA, UNSPECIFIED 07/16/2016 NATHANIEL RODRIGUEZ Ot I10 ESSENTIAL (PRIMARY) HYPERTENSION 07/16/2016 NATHANIEL RODRIGUEZ Ot Z79.899 OTHER [facility] (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 07/21/2016 NATHANIEL RODRIGUEZ Ot C50.911 MALIGNANT NEOPLASM OF UNSP SITE OF RIGHT 07/21/2016 NATHANIEL RODRIGUEZ Ot E78.00 PURE HYPERCHOLESTEROLEMIA, UNSPECIFIED 07/21/2016 NATHANIEL RODRIGUEZ Ot I10 ESSENTIAL (PRIMARY) HYPERTENSION 07/21/2016 NATHANIEL RODRIGUEZ Ot 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 08/01/2016 NATHANIEL RODRIGUEZ Ot C50.911 MALIGNANT NEOPLASM OF UNSP SITE OF RIGHT 08/01/2016 NATHANIEL RODRIGUEZ Lesley Ot E78.00 PURE HYPERCHOLESTEROLEMIA, UNSPECIFIED 08/01/2016 NATHANIEL RODRIGUEZ Lesley Ot I10 ESSENTIAL (PRIMARY) HYPERTENSION 08/01/2016 NATHANIEL RODRIGUEZ Ot Z79.899 OTHER [facility] (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 08/22/2016 JARVIS FREEMAN, SIMONE Parks Ot K21.9 GASTRO-ESOPHAGEAL REFLUX DISEASE WITHOUT 08/22/2016 SIMONE CONLEY MD, Ot K29.70 GASTRITIS, UNSPECIFIED, WITHOUT BLEEDING 08/22/2016 JARVIS FREEMAN, SIMONE Parks Ot Z01.818 ENCOUNTER FOR OTHER PREPROCEDURAL EXAMIN 08/22/2016 SIMONE CONLEY MD, Ot Z12.11 ENCOUNTER FOR SCREENING FOR MALIGNANT NE Procedures Results Encounters ACCT No. Visit Date/Time Discharge Status Pt. Type Provider Facility Loc./Unit Complaint [id number] 08/22/2016 05:57:00 2016 13:26:00 DIS Outpatient SIMONE CONLEY MD [facility] PREOP SCREENING;REFLUX [id number] 02/07/2015 14:26:00 2014 23:59:59 CLS Outpatient KLAUS NEUMANN [facility] RAD SCREENING [id number] 08/01/2014 13:47:00 2014 23:59:59 CLS Outpatient KLAUS NEUMANN DRAFTER GEOPHYSICAL [facility] ONC [id number] 01/31/2014 13:27:00 2013 00:01:00 DIS Outpatient NATHANIEL RODRIGUEZ [facility] ONC [id number] 01/27/2014 10:35:00 2013 23:59:59 CLS Outpatient KLAUS NEUMANN DRAFTER GEOPHYSICAL [facility] RAD BREAST CA,OSTEOPENIA [id number] 01/27/2014 10:34:00 2013 23:59:59 CLS Outpatient KHRIS PHILIPPE MD [facility] LAB [id number] 08/12/2013 14:05:00 2013 23:59:59 CLS Outpatient KLAUS NEUMANN DRAFTER GEOPHYSICAL [facility] ONC [id number] 02/26/2013 11:34:00 2012 23:59:59 CLS Outpatient ANSELMO JUNE APRN [facility] RAD RT VERTEBRAL ARTERY RETROGRADE FLOW, TIA SX [id number] 02/11/2013 13:31:00 2012 23:59:59 CLS Outpatient NATHANIEL RODRIGUEZ [facility] ONC [id number] 01/22/2013 09:55:00 2012 23:59:59 CLS Outpatient KLAUS NEUMANN DRAFTER GEOPHYSICAL [facility] RAD SCREENING [id number] 07/15/2016 13:04:00 ACT Outpatient NATHANIEL RODRIGUEZ [facility] ONC [id number] 05/22/2016 12:59:00 ACT Outpatient KHRIS PHILIPPE MD [facility] RAD HX OF BREAST CA [id number] 07/31/2015 13:19:00 ACT Outpatient KHRIS PHILIPPE MD [facility] LAB [id number] 07/31/2015 13:16:00 ACT Outpatient NATHANIEL RODRIGUEZ [facility] ONC [id number] 07/21/2012 11:00:00 Document Registration [id number] 01/20/2012 12:51:00 Document Registration [id number] 09/12/2011 15:02:00 Document Registration [id number] 09/12/2011 14:23:00 Document Registration [id number] 07/31/2011 12:54:00 Document Registration [id number] 03/07/2011 13:37:00 Document Registration [id number] 03/07/2011 12:39:00 Document Registration
--- OUTSIDE RECORDS SUMMARY | 2016-08-26 08:11 | XMS REPORT | Continuity of Care Document ---
Author Author [facility] Organization [facility] Address Unknown Phone Unavailable Allergies Active Description Code Type Severity Reaction Onset Reported/Identified Relationship to Patient Clinical Status Yes NKANo Known Allergies NKA Miscellaneous Allergy Unknown N/ A 08/22/2006 Yes amoxicillin [id number] Drug Allergy Moderate RASH 08/22/2016 Medications Problems [...] HISTORY OF ANTINEOPLASTIC CHEMO 09/01/2014 KLAUS NEUMANN SPA DIRECTOR/FINANCE Ot 174.9 09/01/2014 KLAUS NEUMANN SPA DIRECTOR/FINANCE Ot 196.3 09/01/2014 KLAUS NEUMANN SPA DIRECTOR/FINANCE Ot 401.9 09/01/2014 KLAUS NEUMANN SPA DIRECTOR/FINANCE Ot V15.3 09/01/2014 KLAUS NEUMANN SPA DIRECTOR/FINANCE Ot V45.71 09/01/2014 KLAUS NEUMANN SPA DIRECTOR/FINANCE Ot V58.66 09/01/2014 KLAUS NEUMANN SPA DIRECTOR/FINANCE Ot V58.69 09/01/2014 KLAUS NEUMANN SPA DIRECTOR/FINANCE Ot V87.41 02/28/2015 KLAUS NEUMANN SPA DIRECTOR/FINANCE Ot 174.9 02/28/2015 KLAUS NEUMANN SPA DIRECTOR/FINANCE Ot V76.11 07/21/2015 JENNIFER, BOBAN N Ot [...] HISTORY OF ANTINEOPLASTIC CHEMO 05/22/2016 KLAUS NEUMANN SPA DIRECTOR/FINANCE Ot 174.9 MALIGN NEOPL BREAST NOS 05/22/2016 KLAUS NEUMANN SPA DIRECTOR/FINANCE Ot 733.90 BONE CARTILAGE DIS NOS 05/22/2016 KLAUS NEUMANN SPA DIRECTOR/FINANCE Ot V49.81 ASYMPT POSTMENOPAUSAL STATUS (AGE- RELATE 05/22/2016 KLAUS NEUMANN SPA DIRECTOR/FINANCE Ot V76.11 SCRN MAMMO-HIGH RISK PT, MALIGNANT [...] HISTORY OF ANTINEOPLASTIC CHEMO 05/22/2016 ANSELMO JUNE COMMUNICATIONS TECHNOLOGIST Ot 785.9 CARDIOVAS SYS SYMP NEC 05/22/2016 ANSELMO JUNE COMMUNICATIONS TECHNOLOGIST Ot V12.54 PERSONAL HX OF TIA, CEREBRAL INFARCTION 05/22/2016 KLAUS NEUMANN SPA DIRECTOR/FINANCE Ot 174.9 MALIGN NEOPL BREAST NOS 05/22/2016 KLAUS NEUMANN SPA DIRECTOR/FINANCE Ot 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 05/22/2016 KLAUS NEUMANN SPA DIRECTOR/FINANCE Ot 401.9 HYPERTENSION NOS 05/22/2016 KLAUS NEUMANN SPA DIRECTOR/FINANCE Ot 457.1 OTHER LYMPHEDEMA 05/22/2016 KLAUS NEUMANN SPA DIRECTOR/FINANCE Ot V15.3 HX OF IRRADIATION 05/22/2016 NELKLAUS SPA DIRECTOR/FINANCE Ot V45.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 05/22/2016 VICKY NEUMANNSHERWIN Lamar SPA DIRECTOR/FINANCE Ot V58.66 LONG-TERM (CURRENT) USE OF ASPIRIN 05/22/2016 NEL KLAUS Newton SPA DIRECTOR/FINANCE Ot V58.69 OTH MED,LT,CURRENT USE 05/22/2016 NEL KLAUS Newton SPA DIRECTOR/FINANCE Ot V87.41 PERSONAL HISTORY OF ANTINEOPLASTIC CHEMO 05/22/2016 VICKY NEUMANNSHERWIN Newton SPA DIRECTOR/FINANCE Ot 174.9 MALIGN NEOPL BREAST NOS 05/22/2016 NEL KLAUS Newton SPA DIRECTOR/FINANCE Ot 733.90 BONE CARTILAGE DIS NOS 05/22/2016 VICKY NEUMANNSHERWIN Lamar SPA DIRECTOR/FINANCE Ot V76.11 SCRN MAMMO-HIGH RISK PT, MALIGNANT NEOPL 05/22/2016 DENAE FREEMAN, KHRIS A Ot 244.9 HYPOTHYROIDISM NOS 05/22/2016 NATHANIEL RODRIGUEZ Ot C50.911 MALIGNANT NEOPLASM OF UNSP SITE OF RIGHT 05/22/2016 NATHANIEL RODRIGUEZ Ot E78.0 PURE HYPERCHOLESTEROLEMIA 05/22/2016 NATHANIEL RODRIGUEZ Ot I10 ESSENTIAL (PRIMARY) HYPERTENSION 05/22/2016 NATHANIEL RODRIGUEZ Ot 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 05/22/2016 KLAUS NEUMANN SPA DIRECTOR/FINANCE Ot 174.9 MALIGN NEOPL BREAST NOS 05/22/2016 VICKY NEUMANNSHERWIN Lamar SPA DIRECTOR/FINANCE Ot 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 05/22/2016 KLAUS NEUMANN SPA DIRECTOR/FINANCE Ot 401.9 HYPERTENSION NOS 05/22/2016 VICKY NEUMANNSHERWIN Newton SPA DIRECTOR/FINANCE Ot V15.3 HX OF IRRADIATION 05/22/2016 NEL KLAUS Newton SPA DIRECTOR/FINANCE Ot V45.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 05/22/2016 KLAUS NEUMANN Lamar SPA DIRECTOR/FINANCE Ot V58.66 LONG-TERM (CURRENT) USE OF ASPIRIN 05/22/2016 NEL KLAUS Newton SPA DIRECTOR/FINANCE Ot V58.69 OTH MED,LT,CURRENT USE 05/22/2016 NEL KLAUS Newton SPA DIRECTOR/FINANCE Ot V87.41 PERSONAL HISTORY OF ANTINEOPLASTIC CHEMO 05/22/2016 NEUMANN, HILAH S SPA DIRECTOR/FINANCE Ot 174.9 MALIGN NEOPL BREAST NOS 05/22/2016 KLAUS NEUMANN SPA DIRECTOR/FINANCE Ot V76.11 SCRN MAMMO-HIGH RISK PT, MALIGNANT [...] HISTORY OF ANTINEOPLASTIC CHEMO 07/15/2016 KLAUS NEUMANN SPA DIRECTOR/FINANCE Ot 174.9 MALIGN NEOPL BREAST NOS 07/15/2016 KLAUS NEUMANN SPA DIRECTOR/FINANCE Ot 733.90 BONE CARTILAGE DIS NOS 07/15/2016 KLAUS NEUMANN SPA DIRECTOR/FINANCE Ot V49.81 ASYMPT POSTMENOPAUSAL STATUS (AGE- RELATE 07/15/2016 KLAUS NEUMANN SPA DIRECTOR/FINANCE Ot V76.11 SCRN MAMMO-HIGH RISK PT, MALIGNANT [...] HISTORY OF ANTINEOPLASTIC CHEMO 07/15/2016 ANSELMO JUNE COMMUNICATIONS TECHNOLOGIST Ot 785.9 CARDIOVAS SYS SYMP NEC 07/15/2016 ANSELMO JUNE COMMUNICATIONS TECHNOLOGIST Ot V12.54 PERSONAL HX OF TIA, CEREBRAL INFARCTION 07/15/2016 KLAUS NEUMANN SPA DIRECTOR/FINANCE Ot 174.9 MALIGN NEOPL BREAST NOS 07/15/2016 KLAUS NEUMANN SPA DIRECTOR/FINANCE Ot 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 07/15/2016 KLAUS NEUMANN SPA DIRECTOR/FINANCE Ot 401.9 HYPERTENSION NOS 07/15/2016 KLAUS NEUMANN SPA DIRECTOR/FINANCE Ot 457.1 OTHER LYMPHEDEMA 07/15/2016 KLAUS NEUMANN SPA DIRECTOR/FINANCE Ot V15.3 HX OF IRRADIATION 07/15/2016 KLAUS NEUMANN SPA DIRECTOR/FINANCE Ot V45.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 07/15/2016 KLAUS NEUMANN SPA DIRECTOR/FINANCE Ot V58.66 LONG-TERM (CURRENT) USE OF ASPIRIN 07/15/2016 KLAUS NEUMANN SPA DIRECTOR/FINANCE Ot V58.69 OTH MED,LT,CURRENT USE 07/15/2016 KLAUS NEUMANN SPA DIRECTOR/FINANCE Ot V87.41 PERSONAL HISTORY OF ANTINEOPLASTIC CHEMO 07/15/2016 KLAUS NEUMANN SPA DIRECTOR/FINANCE Ot 174.9 MALIGN NEOPL BREAST NOS 07/15/2016 KLAUS NEUMANN SPA DIRECTOR/FINANCE Ot 733.90 BONE CARTILAGE DIS NOS 07/15/2016 KLAUS NEUMANN SPA DIRECTOR/FINANCE Ot V76.11 SCRN MAMMO-HIGH RISK PT, MALIGNANT NEOPL 07/15/2016 DENAE FREEMAN, KHRIS A Ot 244.9 HYPOTHYROIDISM NOS 07/15/2016 NATHANIEL RODRIGUEZ Ot C50.911 MALIGNANT NEOPLASM OF UNSP SITE OF RIGHT 07/15/2016 NATHANIEL RODRIGUEZ Ot E78.0 PURE HYPERCHOLESTEROLEMIA 07/15/2016 NATHANIEL RODRIGUEZ Ot I10 ESSENTIAL (PRIMARY) HYPERTENSION 07/15/2016 NATHANIEL RODRIGUEZ Ot 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 07/15/2016 KLAUS NEUMANN SPA DIRECTOR/FINANCE Ot 174.9 MALIGN NEOPL BREAST NOS 07/15/2016 KLAUS NEUMANN SPA DIRECTOR/FINANCE Ot 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 07/15/2016 KLAUS NEUMANN SPA DIRECTOR/FINANCE Ot 401.9 HYPERTENSION NOS 07/15/2016 KLAUS NEUMANN SPA DIRECTOR/FINANCE Ot V15.3 HX OF IRRADIATION 07/15/2016 KLAUS NEUMANN SPA DIRECTOR/FINANCE Ot V45.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 07/15/2016 KLAUS NEUMANN SPA DIRECTOR/FINANCE Ot V58.66 LONG-TERM (CURRENT) USE OF ASPIRIN 07/15/2016 KLAUS NEUMANN SPA DIRECTOR/FINANCE Ot V58.69 OTH MED,LT,CURRENT USE 07/15/2016 KLAUS NEUMANN SPA DIRECTOR/FINANCE Ot V87.41 PERSONAL HISTORY OF ANTINEOPLASTIC CHEMO 07/15/2016 KLAUS NEUMANN SPA DIRECTOR/FINANCE Ot 174.9 MALIGN NEOPL BREAST NOS 07/15/2016 KLAUS NEUMANN SPA DIRECTOR/FINANCE Ot V76.11 SCRN MAMMO-HIGH RISK PT, MALIGNANT [...] HYPERTENSION 07/16/2016 NATHANIEL RODRIGUEZ Ot Z79.899 OTHER [facility] (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 07/21/2016 NATHANIEL RODRIGUEZ Ot C50.911 MALIGNANT NEOPLASM OF UNSP SITE OF RIGHT 07/21/2016 NATHANIEL RODRIGUEZ Ot E78.00 PURE HYPERCHOLESTEROLEMIA, UNSPECIFIED 07/21/2016 NATHANIEL RODRIGUEZ Ot I10 ESSENTIAL (PRIMARY) HYPERTENSION 07/21/2016 NATHANIEL RODRIGUEZ Ot 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 08/01/2016 NATHANIEL RODRIGUEZ Ot C50.911 MALIGNANT NEOPLASM OF UNSP SITE OF RIGHT 08/01/2016 NATHANIEL RODRIGUEZ Lesley Ot E78.00 PURE HYPERCHOLESTEROLEMIA, UNSPECIFIED 08/01/2016 NATHANIEL RODRIGUEZ Lesley Ot I10 ESSENTIAL (PRIMARY) HYPERTENSION 08/01/2016 NATHANIEL RODRIGUEZ Ot Z79.899 OTHER [facility] (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 08/22/2016 JARVIS FREEMAN, SIMONE Parks Ot K21.9 GASTRO-ESOPHAGEAL REFLUX DISEASE WITHOUT 08/22/2016 SIMONE CONLEY MD, Ot K29.70 GASTRITIS, UNSPECIFIED, WITHOUT BLEEDING 08/22/2016 JARVIS FREEMAN, SIMONE Parks Ot Z01.818 ENCOUNTER FOR OTHER PREPROCEDURAL EXAMIN 08/22/2016 SIMONE CONLEY MD, Ot Z12.11 ENCOUNTER FOR SCREENING FOR MALIGNANT NE Procedures Results Encounters ACCT No. Visit Date/Time Discharge Status Pt. Type Provider Facility Loc./Unit Complaint [id number] 08/22/2016 05:57:00 2016 13:26:00 DIS Outpatient SIMONE CONLEY MD [facility] PREOP SCREENING;REFLUX [id number] 02/07/2015 14:26:00 2014 23:59:59 CLS Outpatient KLAUS NEUMANN [facility] RAD SCREENING [id number] 08/01/2014 13:47:00 2014 23:59:59 CLS Outpatient KLAUS NEUMANN SPA DIRECTOR/FINANCE [facility] ONC [id number] 01/31/2014 13:27:00 2013 00:01:00 DIS Outpatient NATHANIEL RODRIGUEZ [facility] ONC [id number] 01/27/2014 10:35:00 2013 23:59:59 CLS Outpatient KLAUS NEUMANN SPA DIRECTOR/FINANCE [facility] RAD BREAST CA,OSTEOPENIA [id number] 01/27/2014 10:34:00 2013 23:59:59 CLS Outpatient KHRIS PHILIPPE MD [facility] LAB [id number] 08/12/2013 14:05:00 2013 23:59:59 CLS Outpatient KLAUS NEUMANN SPA DIRECTOR/FINANCE [facility] ONC [id number] 02/26/2013 11:34:00 2012 23:59:59 CLS Outpatient ANSELMO JUNE APRN [facility] RAD RT VERTEBRAL ARTERY RETROGRADE FLOW, TIA SX [id number] 02/11/2013 13:31:00 2012 23:59:59 CLS Outpatient NATHANIEL RODRIGUEZ [facility] ONC [id number] 01/22/2013 09:55:00 2012 23:59:59 CLS Outpatient KLAUS NEUMANN SPA DIRECTOR/FINANCE [facility] RAD SCREENING [id number] 07/15/2016 13:04:00 ACT Outpatient NATHANIEL RODRIGUEZ [facility] ONC [id number] 05/22/2016 12:59:00 ACT Outpatient KHRIS PHILIPPE MD [facility] RAD HX OF BREAST CA [id number] 07/31/2015 13:19:00 ACT Outpatient KHRIS PHILIPPE MD [facility] LAB [id number] 07/31/2015 13:16:00 ACT Outpatient NATHANIEL RODRIGUEZ [facility] ONC [id number] 07/21/2012 11:00:00 Document Registration [id number] 01/20/2012 12:51:00 Document Registration [id number] 09/12/2011 15:02:00 Document Registration [id number] 09/12/2011 14:23:00 Document Registration [id number] 07/31/2011 12:54:00 Document Registration [id number] 03/07/2011 13:37:00 Document Registration [id number] 03/07/2011 12:39:00 Document Registration
[2016-08-26 08:15] VITALS: BP 148/89
[2016-08-26] MEDS ORDERED: NS IV 500 ML 500 ML IV PRN (08:25)
[2016-08-26] MEDS ORDERED: NS IV 500 ML 500 ML ONE (08:28)
[2016-08-26] MEDS ORDERED: NALOXONE 0.4 MG/ML 1 ML (NARCAN) VIAL IVP PRN (08:30)
[2016-08-26] MEDS ORDERED: FLUMAZENIL (ROMAZICON) 0.1 MG/ML 5 ML VIAL INJ PRN (08:30)
[2016-08-26] MEDS ORDERED: HURRICAINE EXT TUBE (BENZOCAINE) XX PRN (08:30)
--- NOTE | 2016-08-26 09:22 | Pre-Op Note & Conscious Sedat ---
Pre-Operative Progress Note H&P Reviewed The H&P was reviewed, patient examined and no changes noted. Date H&P Reviewed: Aug 26, 2016 Time H&P Reviewed: 09:22 Pre-Op Diagnosis: GERD. Screening for colon cancer Conscious Sedation Pre-Proced ASA Class: 2 Airway Mallampati Classification: ([place] appropriate class) I. II. III, IV Lungs Heart ASA score ASA 1: a normal healthy patient ASA 2: a patient with a mild systemic disease (mid diabetes, controlled hypertension, obesity ASA 3: a patient with a severe systemic disease that limits activity (angina , COPD, prior Myocardial infarction) ASA 4: a patient with an incapacitating disease that is a constant threat to life (CHF, renal failure) ASA 5: a moribund patient not expected to survive 24 hrs. (ruptured aneurysm) ASA 6: a declared brain patient whose organs are being harvested. For emergent operations, add the letter E after the classification Grade 2 Sedation Plan: Discussed options with patient/fam Note The patient is an appropriate candidate to undergo the planned procedure, sedation, and anesthesia. The patient immediately re-assessed prior to indication. SIMONE CONLEY MD Aug 26, 2016 9:22 am
[2016-08-26] MEDS ORDERED: CALC-794 PO (09:23)
[2016-08-26] MEDS ORDERED: MELA1TAB24 SL (09:23)
[2016-08-26] MEDS ORDERED: LOPE-134 PO (09:23)
[2016-08-26] MEDS ORDERED: LEVO50TA6 PO (09:23)
[2016-08-26] MEDS ORDERED: ASCO500T75 PO (09:23)
[2016-08-26] MEDS ORDERED: LORA10TA7 PO (09:23)
[2016-08-26] MEDS ORDERED: ASPI-999 PO (09:23)
[2016-08-26] MEDS ORDERED: LOSA1TAB69 PO (09:23)
[2016-08-26] MEDS ORDERED: FLUT9.9S NS (09:23)
[2016-08-26] MEDS ORDERED: OMEP20TA7 PO (09:23)
[2016-08-26] MEDS ORDERED: LACT1CAP57 PO (09:23)
[2016-08-26] MEDS ORDERED: SIME125T PO (09:23)
[2016-08-26] MEDS ORDERED: MULT-1042 PO (09:23)
[2016-08-26] MEDS ORDERED: MENT56CR TP (09:23)
[2016-08-26] MEDS ORDERED: IBUP200C75 PO (09:23)
[2016-08-26] MEDS ORDERED: CALC500T7 PO ×2 (09:23)
[2016-08-26] MEDS ORDERED: SODI126M NS (09:23)
[2016-08-26] MEDS ORDERED: VITA400C58 PO (09:23)
[2016-08-26] MEDS ORDERED: GARL1TAB PO (09:23)
[2016-08-26] MEDS ORDERED: CARB1DRO15 OP (09:23)
[2016-08-26] MEDS ORDERED: MECL-106 PO (09:23)
[2016-08-26] MEDS ORDERED: FLAX1CAP6 PO (09:23)
[2016-08-26] MEDS ORDERED: HURRICAINE EXT TUBE (BENZOCAINE) ONE (09:30)
[2016-08-26] MEDS ORDERED: MIDAZOLAM 2 MG/2 ML (VERSED) VIAL ONE ×4 (09:30)
[2016-08-26] MEDS ORDERED: fentaNYL INJECTION 100 MCG/2 ML AMP ONE ×2 (09:30)
[2016-08-26] MEDS: fentaNYL INJECTION 100 MCG/2 ML AMP IVP PRN ×4 (09:38→10:08)
[2016-08-26] MEDS: MIDAZOLAM 2 MG/2 ML (VERSED) VIAL IVP PRN ×4 (09:40→09:55)
--- NOTE | 2016-08-26 10:22 | Progress Note-Post Operative ---
Post-Operative Progess Note Pre-Operative Diagnosis GERD. Screening for colon cancer Post-Operative Diagnosis EGD: hiatal hernia with grade 1 esophagitis. 1 mm polyp at the GE junction. 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 Biopsy of polyp at the gastroesophageal junction colonoscopy to cecum Anesthesia Type sedation Specimen(s) collected antral mucosa. Polyp at the GE junction SIMONE CONLEY MD Aug 26, 2016 10:22 am
--- NOTE | 2016-08-26 10:24 | Discharge Inst-Simple/Standard ---
Discharge Inst-Standard Discharge Medications New, Converted or Re-Newed RX: Other Patient Instructions/Follow Up Plan of Care/Instructions/FU: follow-up with her primary as needed Activity as Tolerated: Yes Discharge Diet: No Restrictions SIMONE CONLEY MD Aug 26, 2016 10:24 am
[2016-08-26 10:40] VITALS: BP 152/77
--- NOTE | 2016-08-26 10:42 | OPERATIVE REPORT ---
PROCEDURE PHYSICIAN: SIMONE CONLEY DATE OF PROCEDURE: 08/26/2016 PROCEDURES: 1. Upper GI endoscopy with biopsy. 2. Colonoscopy. SURGEON: Dr. Conley. INDICATION FOR THE PROCEDURE: This lady came in for an endoscopic assessment of symptoms of long-standing reflux disease and for screening colonoscopy. She denied any family history of colon cancer. Informed consent was obtained after reviewing the procedures in detail. DESCRIPTION OF PROCEDURE: 1. UPPER GI ENDOSCOPY/BIOPSY: She was placed in left lateral decubitus position and her vital signs were monitored. Conscious sedation was achieved using Versed and fentanyl. The flexible gastroscope was then introduced down the esophagus, past the stomach, into the proximal duodenum. FINDINGS: ESOPHAGUS: 1. A short hiatal hernia with grade 1 esophagitis. 2. 1 mm polyp at the gastroesophageal junction, that was excised with hot biopsy forceps. 3. 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 An antral biopsy was obtained for Helicobacter status. DUODENUM: Normal. She tolerated the procedure well and was turned around in preparation for colonoscopy. IMPRESSION: 1. Long-standing symptoms of reflux disease. 2. Hiatal hernia with esophagitis. 3. Small polyp at the gastroesophageal junction excised. 2. COLONOSCOPY: Digital rectal examination was unremarkable. The colonoscope was then introduced into the rectum and advanced with difficulty to the cecum. The scope was then withdrawn slowly and the mucosa examined in a systematic fashion. FINDINGS: SIGMOID DIVERTICULOSIS: No polyps were found. She tolerated the procedure well and was taken back to the nursing area in a stable condition. IMPRESSION: Screening colonoscopy, no polyps. Job ID: [id number] Dictated Date: 08/26/2016 10:20:04 Cemetery Manager Date: 08/26/2016 10:37:34 / thom ESPOSITO
[2016-08-26 11:15] VITALS: BP 148/74
[2016-08-26 11:50] VITALS: BP 148/74
== END 2016-08-26 11:50 | disposition home or self-care (01) ==
LOC: ENDO 08:03
PROVIDERS: ATTEND Surgery
DX: Z12.11 Encounter for screening for malignant neoplasm of colon (principal); K31.7 Polyp of stomach and duodenum; K20.9 Esophagitis, unspecified; K44.9 Diaphragmatic hernia without obstruction or gangrene
CPT/HCPCS: 43239; 43250; G0121; 88305; 88342

== ENCOUNTER → 2017-06-16 | Outpatient (CLI) | payer MEDICARE, OTHER ==
[~2017-06-16] MED LIST changes: -GARL1TAB PO; +GARL1TAB2 PO; +LOSA1TAB20 PO; -LOSA1TAB69 PO
--- NOTE | 2017-06-16 13:33 | Diagnostic Imaging Report ---
INDICATION: Breast cancer. Comparison made with prior examination from 05/22/2016, 02/07/2015 and 10/27/13. The current study was also evaluated with a Computer Aided Detection (CAD) system. FINDINGS: There is a moderate amount of residual fibroglandular tissue in the left breast. There are benign type calcifications. There is no dominant mass, spiculated lesion or suspicious calcification identified. Skin, nipples and axilla are unremarkable. IMPRESSION: Category 2 benign ACR BI-RADS Category 2: Benign findings. Result letter will be mailed to the patient. Note: At least 10% of breast cancer is not imaged by mammography. Dictated by: Dictated on workstation # [id number]
== END ==
LOC: RAD 12:36
PROVIDERS: ATTEND Nurse Practitioner Adult Health
DX: C50.911 Malignant neoplasm of unspecified site of right female breast (principal)

== ENCOUNTER → 2017-08-11 | Outpatient (CLI) | payer MEDICARE, OTHER ==
[2017-08-11 13:42] LABS: BASOPHILS % (AUTO) 0 % (0-10); EOSINOPHILS # (AUTO) 0.1 10^3/uL (0.0-0.3); EOSINOPHILS % (AUTO) 1 % (0-10); HEMATOCRIT 41 % (35-52); HEMOGLOBIN 13.9 G/DL (11.5-16.0); LYMPHOCYTES # (AUTO) 2.8 X 10^3 (1.0-4.0); LYMPHOCYTES % (AUTO) 36 % (12-44); MEAN CORPUSCULAR HEMOGLOBIN 30 PG (25-34); MEAN CORPUSCULAR HGB CONC 34 G/DL (32-36); MEAN CORPUSCULAR VOLUME 89 FL (80-99); MEAN PLATELET VOLUME 10.7 FL (7.4-10.4); MONOCYTES # (AUTO) 0.6 X 10^3 (0.0-1.0); MONOCYTES % (AUTO) 8 % (0-12); NEUTROPHILS # (AUTO) 4.2 X 10^3 (1.8-7.8); NEUTROPHILS % (AUTO) 54 % (42-75); PLATELET COUNT 296 10^3/uL (130-400); RED BLOOD COUNT 4.58 10^6/uL (4.35-5.85); RED CELL DISTRIBUTION WIDTH 12.7 % (10.0-14.5); WHITE BLOOD COUNT 7.8 10^3/uL (4.3-11.0)
[2017-08-11 13:59] LABS: ALANINE AMINOTRANSFERASE 14 U/L (0-55); ALBUMIN 4.2 GM/DL (3.2-4.5); ALKALINE PHOSPHATASE 69 U/L (40-136); BILIRUBIN,TOTAL 0.5 MG/DL (0.1-1.0); BUN/CREATININE RATIO 14; CALCIUM 9.2 MG/DL (8.5-10.1); CARBON DIOXIDE 29 MMOL/L (21-32); CHLORIDE 98 MMOL/L (98-107); CREATININE SERUM 0.73 MG/DL (0.60-1.30); GFR ESTIMATED > 60; GLUCOSE 94 MG/DL (70-105); SODIUM 132 MMOL/L (135-145); TOTAL PROTEIN 7.3 GM/DL (6.4-8.2)
== END ==
LOC: ONC 13:29
PROVIDERS: ATTEND Internal Medicine Hematology & Oncology
DX: C50.911 Malignant neoplasm of unspecified site of right female breast (principal); I10 Essential (primary) hypertension; E78.00 Pure hypercholesterolemia, unspecified; Z79.899 Other long term (current) drug therapy
CPT/HCPCS: 36415; 80053; 85025; 99213

== ENCOUNTER → 2018-08-10 | Outpatient (CLI) | payer MEDICARE, OTHER ==
[~2018-08-10] MED LIST changes: +IBUP-2185 PO; -IBUP200C75 PO
[2018-08-10 13:13] LABS: BASOPHILS % (AUTO) 0 % (0-10); EOSINOPHILS % (AUTO) 1 % (0-10); HEMATOCRIT 42 % (35-52); HEMOGLOBIN 14.1 G/DL (11.5-16.0); LYMPHOCYTES # (AUTO) 2.7 X 10^3 (1.0-4.0); LYMPHOCYTES % (AUTO) 35 % (12-44); MEAN CORPUSCULAR HEMOGLOBIN 29 PG (25-34); MEAN CORPUSCULAR HGB CONC 34 G/DL (32-36); MEAN CORPUSCULAR VOLUME 86 FL (80-99); MEAN PLATELET VOLUME 10.3 FL (7.4-10.4); MONOCYTES # (AUTO) 0.6 X 10^3 (0.0-1.0); MONOCYTES % (AUTO) 8 % (0-12); NEUTROPHILS # (AUTO) 4.4 X 10^3 (1.8-7.8); NEUTROPHILS % (AUTO) 57 % (42-75); PLATELET COUNT 309 10^3/uL (130-400); RED CELL DISTRIBUTION WIDTH 13.1 % (10.0-14.5); WHITE BLOOD COUNT 7.7 10^3/uL (4.3-11.0)
[2018-08-10 13:37] LABS: ALANINE AMINOTRANSFERASE 16 U/L (0-55); ALBUMIN 4.3 GM/DL (3.2-4.5); ALKALINE PHOSPHATASE 71 U/L (40-136); BILIRUBIN,TOTAL 0.3 MG/DL (0.1-1.0); BUN/CREATININE RATIO 15; CALCIUM 9.3 MG/DL (8.5-10.1); CARBON DIOXIDE 23 MMOL/L (21-32); CHLORIDE 97 MMOL/L (98-107); CREATININE SERUM 0.75 MG/DL (0.60-1.30); GFR ESTIMATED > 60; GLUCOSE 116 MG/DL (70-105); POTASSIUM 3.9 MMOL/L (3.6-5.0); SODIUM 130 MMOL/L (135-145); TOTAL PROTEIN 7.6 GM/DL (6.4-8.2)
== END ==
LOC: ONC 13:04
PROVIDERS: ATTEND Internal Medicine Hematology & Oncology
DX: C50.911 Malignant neoplasm of unspecified site of right female breast (principal); I10 Essential (primary) hypertension; E78.00 Pure hypercholesterolemia, unspecified; Z79.899 Other long term (current) drug therapy
CPT/HCPCS: 36415; 80053; 84443; 85025; 99213

== ENCOUNTER → 2018-08-10 | Outpatient (CLI) | payer MEDICARE, OTHER ==
--- NOTE | 2018-08-10 11:49 | Diagnostic Imaging Report ---
INDICATION: Routine screening. COMPARISON: 06/16/2017 and 05/22/2016. TECHNIQUE: 2D and 3D unilateral left screening mammography was performed with CAD. FINDINGS: Scattered fibroglandular densities in the left breast are again noted. The overall parenchymal pattern appears to be stable. There are benign calcifications in the left breast. No new mass or malignant appearing microcalcifications are seen. A density in the retroareolar left breast appears to be stable and likely benign. The left axilla is unremarkable. IMPRESSION: No mammographic features suspicious for malignancy are identified. ACR BI-RADS Category 2: Benign findings. Result letter will be mailed to the patient. Note: At least 10% of breast cancer is not imaged by mammography. Dictated by: Dictated on workstation # [id number]
== END ==
LOC: RAD 10:52
PROVIDERS: ATTEND Internal Medicine Hematology & Oncology
DX: Z12.31 Encounter for screening mammogram for malignant neoplasm of breast (principal); Z85.3 Personal history of malignant neoplasm of breast

== ENCOUNTER → 2019-08-12 | Outpatient (CLI) | payer MEDICARE, OTHER ==
[~2019-08-12] MED LIST changes: -MECL-106 PO; +MECL-149 PO; +VITA-272 PO; -VITA400C58 PO
[2019-08-12 13:43] LABS: BASOPHILS % (AUTO) 0 % (0-10); EOSINOPHILS # (AUTO) 0.1 10^3/uL (0.0-0.3); EOSINOPHILS % (AUTO) 1 % (0-10); HEMATOCRIT 45 % (35-52); HEMOGLOBIN 14.8 G/DL (11.5-16.0); LYMPHOCYTES # (AUTO) 2.5 X 10^3 (1.0-4.0); LYMPHOCYTES % (AUTO) 37 % (12-44); MEAN CORPUSCULAR HEMOGLOBIN 29 PG (25-34); MEAN CORPUSCULAR HGB CONC 33 G/DL (32-36); MEAN CORPUSCULAR VOLUME 88 FL (80-99); MEAN PLATELET VOLUME 10.7 FL (7.4-10.4); MONOCYTES # (AUTO) 0.6 X 10^3 (0.0-1.0); MONOCYTES % (AUTO) 8 % (0-12); NEUTROPHILS # (AUTO) 3.8 X 10^3 (1.8-7.8); NEUTROPHILS % (AUTO) 55 % (42-75); PLATELET COUNT 322 10^3/uL (130-400); WHITE BLOOD COUNT 6.9 10^3/uL (4.3-11.0)
[2019-08-12 14:04] LABS: ALANINE AMINOTRANSFERASE 16 U/L (0-55); ALBUMIN 4.5 GM/DL (3.2-4.5); ALKALINE PHOSPHATASE 65 U/L (40-136); BILIRUBIN,TOTAL 0.5 MG/DL (0.1-1.0); BUN/CREATININE RATIO 12; CALCIUM 9.7 MG/DL (8.5-10.1); CARBON DIOXIDE 26 MMOL/L (21-32); CHLORIDE 99 MMOL/L (98-107); CREATININE SERUM 0.74 MG/DL (0.60-1.30); GFR ESTIMATED > 60; GLUCOSE 86 MG/DL (70-105); POTASSIUM 4.2 MMOL/L (3.6-5.0); SODIUM 134 MMOL/L (135-145); TOTAL PROTEIN 7.8 GM/DL (6.4-8.2)
== END ==
LOC: ONC 13:22
PROVIDERS: ATTEND Internal Medicine Hematology & Oncology
DX: C50.911 Malignant neoplasm of unspecified site of right female breast (principal); I97.2 Postmastectomy lymphedema syndrome; Z98.890 Other specified postprocedural states; Z17.0 Estrogen receptor positive status [ER+]; Z90.11 Acquired absence of right breast and nipple; Z92.21 Personal history of antineoplastic chemotherapy
CPT/HCPCS: 80053; 85025; 99213

== ENCOUNTER → 2019-08-17 | Outpatient (CLI) | payer MEDICARE, OTHER ==
--- NOTE | 2019-08-17 16:35 | Diagnostic Imaging Report ---
INDICATION: Routine screening. Comparison is made with prior mammogram from 08/10/2018 and 06/16/2017. Unilateral left 2-D and 3-D screening mammography was performed with CAD. Scattered fibroglandular tissues of the left breast are noted. There are benign calcifications in the left breast. The density in the retroareolar left breast appears to be less prominent on this current exam. No new mass is seen. No malignant-appearing microcalcifications are seen. The left axilla is unremarkable. IMPRESSION: BI-RADS Category 2 No mammographic features suspicious for malignancy are identified. Dictated by: Dictated on workstation # [id number]
== END ==
LOC: RAD 14:58
PROVIDERS: ATTEND Nurse Practitioner Adult Health
DX: Z12.31 Encounter for screening mammogram for malignant neoplasm of breast (principal); Z85.3 Personal history of malignant neoplasm of breast

== ENCOUNTER → 2020-08-22 | Outpatient (CLI) | payer MEDICARE, OTHER ==
[2020-08-22 13:28] LABS: BASOPHILS # (AUTO) 0.1 10^3/uL (0.0-0.1); BASOPHILS % (AUTO) 1 % (0-10); EOSINOPHILS # (AUTO) 0.1 10^3/uL (0.0-0.3); EOSINOPHILS % (AUTO) 1 % (0-10); HEMATOCRIT 43 % (35-52); HEMOGLOBIN 14.6 g/dL (11.5-16.0); LYMPHOCYTES # (AUTO) 2.7 10^3/uL (1.0-4.0); LYMPHOCYTES % (AUTO) 38 % (12-44); MEAN CORPUSCULAR HEMOGLOBIN 30 pg (25-34); MEAN CORPUSCULAR HGB CONC 34 g/dL (32-36); MEAN CORPUSCULAR VOLUME 90 fL (80-99); MEAN PLATELET VOLUME 10.6 fL (9.0-12.2); MONOCYTES # (AUTO) 0.5 10^3/uL (0.0-1.0); MONOCYTES % (AUTO) 7 % (0-12); NEUTROPHILS # (AUTO) 3.8 10^3/uL (1.8-7.8); NEUTROPHILS % (AUTO) 53 % (42-75); PLATELET COUNT 303 10^3/uL (130-400); WHITE BLOOD COUNT 7.1 10^3/uL (4.3-11.0)
[2020-08-22 13:49] LABS: ALANINE AMINOTRANSFERASE 19 U/L (0-55); ALBUMIN 4.3 GM/DL (3.2-4.5); ALKALINE PHOSPHATASE 64 U/L (40-136); BILIRUBIN,TOTAL 0.5 MG/DL (0.1-1.0); BUN/CREATININE RATIO 14; CARBON DIOXIDE 25 MMOL/L (21-32); CHLORIDE 97 MMOL/L (98-107); CREATININE SERUM 0.72 MG/DL (0.60-1.30); GFR ESTIMATED > 60; GLUCOSE 104 MG/DL (70-105); POTASSIUM 3.7 MMOL/L (3.6-5.0); SODIUM 131 MMOL/L (135-145); TOTAL PROTEIN 7.6 GM/DL (6.4-8.2)
== END ==
LOC: LAB 13:14
PROVIDERS: ATTEND Family Medicine
DX: E11.65 Type 2 diabetes mellitus with hyperglycemia (principal); Z79.899 Other long term (current) drug therapy
CPT/HCPCS: 36415; 80053; 83036; 84443; 85025

== ENCOUNTER → 2020-08-22 | Outpatient (CLI) | payer MEDICARE, OTHER ==
[2020-08-22 13:26] LABS: BASOPHILS # (AUTO) 0.1 10^3/uL (0.0-0.1); BASOPHILS % (AUTO) 1 % (0-10); EOSINOPHILS # (AUTO) 0.1 10^3/uL (0.0-0.3); EOSINOPHILS % (AUTO) 1 % (0-10); HEMATOCRIT 43 % (35-52); HEMOGLOBIN 14.6 g/dL (11.5-16.0); LYMPHOCYTES # (AUTO) 2.7 10^3/uL (1.0-4.0); LYMPHOCYTES % (AUTO) 38 % (12-44); MEAN CORPUSCULAR HEMOGLOBIN 30 pg (25-34); MEAN CORPUSCULAR HGB CONC 34 g/dL (32-36); MEAN CORPUSCULAR VOLUME 90 fL (80-99); MEAN PLATELET VOLUME 10.6 fL (9.0-12.2); MONOCYTES # (AUTO) 0.5 10^3/uL (0.0-1.0); MONOCYTES % (AUTO) 7 % (0-12); NEUTROPHILS # (AUTO) 3.8 10^3/uL (1.8-7.8); NEUTROPHILS % (AUTO) 53 % (42-75); PLATELET COUNT 303 10^3/uL (130-400); WHITE BLOOD COUNT 7.1 10^3/uL (4.3-11.0)
[2020-08-22 13:47] LABS: ALANINE AMINOTRANSFERASE 18 U/L (0-55); ALBUMIN 4.3 GM/DL (3.2-4.5); ALKALINE PHOSPHATASE 65 U/L (40-136); BILIRUBIN,TOTAL 0.5 MG/DL (0.1-1.0); BUN/CREATININE RATIO 14; CALCIUM 9.1 MG/DL (8.5-10.1); CARBON DIOXIDE 24 MMOL/L (21-32); CHLORIDE 97 MMOL/L (98-107); CREATININE SERUM 0.72 MG/DL (0.60-1.30); GFR ESTIMATED > 60; GLUCOSE 105 MG/DL (70-105); POTASSIUM 3.7 MMOL/L (3.6-5.0); SODIUM 132 MMOL/L (135-145); TOTAL PROTEIN 7.6 GM/DL (6.4-8.2)
== END ==
LOC: ONC 13:10
PROVIDERS: ATTEND Internal Medicine Hematology & Oncology
DX: C50.911 Malignant neoplasm of unspecified site of right female breast (principal); I89.0 Lymphedema, not elsewhere classified; K21.9 Gastro-esophageal reflux disease without esophagitis; I10 Essential (primary) hypertension; E78.00 Pure hypercholesterolemia, unspecified; Z90.11 Acquired absence of right breast and nipple; Z92.21 Personal history of antineoplastic chemotherapy; Z92.3 Personal history of irradiation; Z98.890 Other specified postprocedural states
CPT/HCPCS: 80053; 85025; G0463

== ENCOUNTER → 2020-08-22 | Outpatient (CLI) | payer MEDICARE, OTHER ==
--- NOTE | 2020-08-22 13:47 | Diagnostic Imaging Report ---
INDICATION: Routine screening. COMPARISON: 08/17/2019 and 08/10/2018. TECHNIQUE: Unilateral left 2D and 3D screening mammography was performed with CAD. FINDINGS: The left breast is heterogeneously dense, limiting the sensitivity of mammography. Benign calcifications in the left breast are again noted. No mass or malignant appearing microcalcifications are seen. The left axilla is unremarkable. IMPRESSION: No mammographic features suspicious for malignancy are identified. ACR BI-RADS Category 2: Benign findings. Result letter will be mailed to the patient. Note: At least 10% of breast cancer is not imaged by mammography. Dictated by: Dictated on workstation # [id number]
== END ==
LOC: RAD 11:19
PROVIDERS: ATTEND Nurse Practitioner Adult Health
DX: Z12.31 Encounter for screening mammogram for malignant neoplasm of breast (principal); Z85.3 Personal history of malignant neoplasm of breast
CPT/HCPCS: 77063

== ENCOUNTER → 2021-08-31 | Outpatient (CLI) | payer MEDICARE, OTHER ==
--- NOTE | 2021-09-03 08:56 | Diagnostic Imaging Report ---
INDICATION: Routine screening. COMPARISON: 08/22/2020 and 08/17/2019. TECHNIQUE: 2D and 3D unilateral left screening mammography was performed with CAD. FINDINGS: The left breast is heterogeneously dense, limiting the sensitivity of mammography. There is some increasing nodularity in the central left breast, best seen on the MLO view at the nipple line. This appears to be laterally located based off the tomographic images. Additional views are recommended. There are scattered benign calcifications noted. No malignant-appearing microcalcifications are seen. The left axilla is unremarkable. IMPRESSION: Left breast density. Additional views are recommended for further evaluation. ACR BI-RADS Category 0: Incomplete. (Needs additional imaging evaluation). Result letter will be mailed to the patient. Note: At least 10% of breast cancer is not imaged by mammography. Dictated by: Dictated on workstation # [id number]
== END ==
LOC: RAD 15:18
PROVIDERS: ATTEND Nurse Practitioner Adult Health
DX: Z12.31 Encounter for screening mammogram for malignant neoplasm of breast (principal); Z85.3 Personal history of malignant neoplasm of breast
CPT/HCPCS: 77063

== ENCOUNTER → 2021-09-05 | Outpatient (CLI) | payer MEDICARE, OTHER ==
--- NOTE | 2021-09-05 15:23 | Diagnostic Imaging Report ---
Indication: Abnormal left mammogram. Correlation is made with diagnostic mammogram earlier the same day as well as screening mammogram from 08/31/2021. Sonographic interrogation of the outer left breast was performed. No sonographic abnormality is seen. No solid or cystic mass is detected. IMPRESSION: BI-RADS Category 1 No sonographic abnormality is detected. The patient may return to routine annual screening mammography. ACR BI-RADS Category 1: Negative. Result letter will be mailed to the patient. Note: At least 10% of breast cancer is not imaged by mammography. Dictated by: Dictated on workstation # [id number]
--- NOTE | 2021-09-06 09:21 | Diagnostic Imaging Report ---
INDICATION: Left breast density. Patient presents for additional views. Unilateral left 2-D and 3-D diagnostic mammography was performed with CAD. This included exaggerated CC as well as spot compression ML and routine 90 degree lateral views. Additional views show mild residual density in this central left breast inferiorly on the ML view. There appears to be good dispersion and no discrete mass is seen. No suspicious calcifications are seen. IMPRESSION: BI-RADS 0 Additional views fail demonstrate a discrete mass. There is some mild residual density in the central left breast. Further evaluation with ultrasound is recommended and will be performed. ACR BI-RADS Category 0: Incomplete. (Needs additional imaging evaluation). Result letter will be mailed to the patient. Note: At least 10% of breast cancer is not imaged by mammography. Dictated by: Dictated on workstation # [id number]
== END ==
LOC: RAD 13:45
PROVIDERS: ATTEND Internal Medicine Hematology & Oncology
DX: R92.8 Other abnormal and inconclusive findings on diagnostic imaging of breast (principal); Z85.3 Personal history of malignant neoplasm of breast
CPT/HCPCS: 76642; 77065; G0279

== ENCOUNTER → 2022-09-12 | Outpatient (CLI) | payer MEDICARE, OTHER ==
[~2022-09-12] MED LIST changes: +OMEP20TA56 PO; -OMEP20TA7 PO; +VITA-212 PO; -VITA-272 PO
--- NOTE | 2022-09-12 16:28 | Diagnostic Imaging Report ---
INDICATION: Routine screening. Comparison is made with prior mammogram from 08/31/2021 and 08/22/2020. Unilateral left 2-D and 3-D screening mammography was performed with CAD. Left breast is heterogeneously dense, limiting the sensitivity of mammography. The parenchymal pattern is stable. No dominant mass or malignant-appearing microcalcifications are seen. There are benign calcifications in the left breast. Left axilla is unremarkable. IMPRESSION: No mammographic features suspicious for malignancy are identified. ACR BI-RADS Category 2: Benign findings. Result letter will be mailed to the patient. Note: At least 10% of breast cancer is not imaged by mammography. BI-RADS Category 2 Dictated by: Dictated on workstation # [id number]
== END ==
LOC: RAD 11:29
PROVIDERS: ATTEND Internal Medicine Hematology & Oncology
DX: Z12.31 Encounter for screening mammogram for malignant neoplasm of breast (principal); R10.2 Pelvic and perineal pain; Z85.3 Personal history of malignant neoplasm of breast
CPT/HCPCS: 77063

== ENCOUNTER → 2022-09-24 | Outpatient (CLI) | payer MEDICARE, OTHER ==
--- NOTE | 2022-09-24 16:04 | Diagnostic Imaging Report ---
INDICATION: Postmenopausal state. COMPARISON: 01/27/2014. FINDINGS: AP Spine L1-L4: [BMD (g/cm2): 1.077] [T-Score: -1.0] [Z-Score: 0.5] [BMD Previous: 1.157] [BMD % Change: -6.9*] LT Hip Neck: [BMD (g/cm2): 0.848] [T-Score: -1.4] [Z-Score: 0.5] LT Hip Total: [BMD (g/cm2):0.923] [T-Score:-0.7] [Z-Score: 1.0] [BMD Previous: 0.956] [BMD % Change: -3.5] RT Hip Neck: [BMD (g/cm2):0.798] [T-Score:-1.7] [Z-Score:0.1] RT Hip Total: [BMD (g/cm2):0.937] [T-score:-0.6] [Z-Score:1.1] [BMD Previous:0.974] [BMD % Change:-3.8*] *Indicates significant change from prior examination based on 95% confidence level. World Health Organization criteria for BMD interpretation classify patients as Normal (T-score at or above -1.0), Osteopenic (T-score between -1.0 and -2.5) or Osteoporotic (T-score at or below -2.5). LIMITATIONS AND MODIFICATION: None. FRACTURE RISK (FRAX SCORE): The ten year probability of (%): Major Osteoporotic Fracture: [12.8] Hip Fracture: [3.0] IMPRESSION: 1. Osteopenia (Low bone mass). 2. Bone mineral density has decreased by a statistically significant amount, as detailed above. 3. See below National Osteoporosis Foundation guidelines on when to potentially initiate pharmacologic therapy. Based on the National Osteoporosis Foundation Guidelines, pharmacologic treatment should be initiated in any of the following, unless clinical conditions suggest otherwise: * Any patient with prior fragility fracture of the hip or vertebrae. A spine fracture indicates 5X risk for subsequent spine fracture and 2X risk for subsequent hip fracture. * Osteoporosis (T-score <-2.5). * Postmenopausal women and men age 50 and older with low bone mass/osteopenia (T-score between -1.0 and -2.5) by DXA and 10-year major osteoporotic fracture greater than 20% or a 10-year probability of hip fracture greater than 3%. These fracture risks are supplied above in the FRAX score, if applicable. * Clinician judgement and/or patient preferences may indicate treatment for people with 10-year fracture probabilities above or below these levels. Dictated by: Dictated on workstation # [id number]
== END ==
LOC: RAD 13:09
PROVIDERS: ATTEND Internal Medicine Hematology & Oncology
DX: M85.80 Other specified disorders of bone density and structure, unspecified site (principal); Z78.0 Asymptomatic menopausal state; Z85.3 Personal history of malignant neoplasm of breast
CPT/HCPCS: 77080